=== PATIENT | male | born 1950 | race Two or more races ===

== ENCOUNTER 2020-01-30 05:49 | Day surgery (SDC) | payer MEDICARE, MEDICAID ==
--- NOTE | 2020-01-29 21:13 | Pre-Procedure Note/Attestation ---
Pre-Procedure Note/Attestation Complete Prior to Procedure Planned Procedure: right - removal of cataract and placement of intraocular lens right eye Procedure Narrative: Removal of cataract and placement of intraocular lens, right eye Indications for Procedure Pre-Operative Diagnosis: Cataract, combined, right eye Attestation I attest that I discussed the nature of the procedure; its benefits; risks and complications; and alternatives (and the risks and benefits of such alternatives), prior to the procedure, with the patient (or the patient's legal traveling sales representative). I attest that, if there was a reasonable possibility of needing a blood t ransfusion, the patient (or the patient's legal traveling sales representative) was given the [facility] standardized written summary, pursuant to the Michael Myron Blood Safety Act ([place] Health and Safety Code # 1645, as amended). I attest that I re-evaluated the patient just prior to the surgery and that there has been no change in the patient's H&P, except as documented below: Michael Jacinto MD Jan 29, 2020 21:13
[2020-01-30] VITALS (12 sets, daily range): BP systolic 128–195; BP diastolic 71–89
[~2020-01-30] VITALS: Ht 175.3 cm; Wt 86.2 kg
[~2020-01-30 05:49] MED LIST: ASPIR 8181 MG ORAL; ENALAPRIL MALEA10 MG ORAL; LYRICA75 M1 ORAL; NOVOLIN R100 UNIT/1 SUBQ; TRESIBA FL100 UNIT/1 SQ; TRULICITY0.75 MG/0. SQ; VASCEPA1 GM PO; Vit D3 PO
[2020-01-30] MEDS: Akten 3.5% 1ml Btl RIGHT EYE SCH ×3 (06:10→06:28)
[2020-01-30] MEDS: Tropicamide 1% Opth 15ml Soln RIGHT EYE SCH ×3 (06:10→06:28)
[2020-01-30] MEDS: Phenylephrine 10% Opth Soln 5ml RIGHT EYE SCH ×3 (06:10→06:28)
[2020-01-30] MEDS: Diclofenac Sod 0.1% Op Soln RIGHT EYE SCH ×3 (06:11→06:28)
[2020-01-30] MEDS: Cyclopentolate 1% Opth Sol 2ml RIGHT EYE SCH ×3 (06:11→06:28)
[2020-01-30] MEDS: Tobradex Opth Susp 2.5ml RIGHT EYE SCH ×3 (06:11→06:28)
[2020-01-30] MEDS: Vigamox Opth Soln 3ml RIGHT EYE SCH ×3 (06:11→06:28)
[2020-01-30] MEDS ORDERED: EPINEPHrine 1mg/1ml Amp ONE ×2 (07:09→07:12)
[2020-01-30] MEDS ORDERED: Lidocaine 4% Amp 5ml ONE (07:10)
[2020-01-30] MEDS ORDERED: Lidocaine 1% MPF 10mg/ml 5ml ONE (07:10)
[2020-01-30] MEDS ORDERED: prednisoLONE acetate 1% Opth Susp 1ml ONE (07:10)
[2020-01-30] MEDS ORDERED: Carbachol 0.01% Op Soln 1.5ml vial ONE (07:10)
[2020-01-30] MEDS ORDERED: timoloL maleate 0.5% Op Soln 2.5ml ONE (07:10)
[2020-01-30] MEDS ORDERED: Maxitrol Opth Oint 3.5gm ONE (07:10)
[2020-01-30] MEDS ORDERED: fentaNYL 100 mcg/2 mL IV ONE ×2 (07:10→07:30)
[2020-01-30] MEDS ORDERED: Fluorescein Strips ONE (07:10)
[2020-01-30] MEDS ORDERED: BSS 500ml btl ONE (07:11)
[2020-01-30] MEDS ORDERED: BSS 15ml BTL ONE (07:11)
[2020-01-30] MEDS ORDERED: Bupivacaine 0.75% 30ml vial INJ ONE (07:11)
[2020-01-30] MEDS ORDERED: Midazolam 2mg/2ml Inj ONE ×2 (07:11→07:30)
[2020-01-30] MEDS ORDERED: Povidone-Iodine 5% opth solution ONE (07:11)
[2020-01-30] MEDS ORDERED: Tetracaine 0.5% Opth 4ml Soln ONE (07:11)
[2020-01-30] MEDS ORDERED: Sodium Hyaluronate 10 mg/ml 0.85ml ONE (07:12)
[2020-01-30] MEDS ORDERED: NS Irrig 1000ml ONE (07:30)
[2020-01-30] MEDS ORDERED: Sterile Water Irrig 1000ml IRRIG ONE (07:30)
[2020-01-30] MEDS ORDERED: LR 1000ml ONE (07:30)
--- NOTE | 2020-01-30 07:56 | Anethesia Preoperative Eval ---
Anesthesia Pre-op PMH/ROS General Date of Evaluation: Jan 30, 2020 Time of Evaluation: 07:22 Anesthesiologist: Gloria ASA Score: ASA 3 Mallampati Score Class I : Soft palate, uvula, fauces, pillars visible Class II: Soft palate, uvula, fauces visible Class III: Soft palate, base of uvula visible Class IV: Only hard plate visible Mallampati Classification: Class I Surgeon: Ophelia Diagnosis: R eye cataract Surgical Procedure: Cataract extraction Anesthesia History: none Family History: no anesthesia problems Allergies: Coded Allergies: No Known Allergies (Unverified , 01/30/20) Medications: see eMAR Patient NPO?: Yes Past Medical History Cardiovascular: Reports: HTN - stable on meds; Denies: CAD, VA, valve dz, arrhythmia, other Pulmonary: Denies: asthma, COPD, HERON, other Gastrointestinal/Genitourinary: Reports: GERD, CRI - Elevated Cr level; Denies: ESRD, other Neurologic/Psychiatric: Reports: other - diabetic neuropathy; Denies: dementia, CVA, depression/anxiety, TIA Endocrine: Reports: DM - on insulin; Denies: hypothyroidism, steroids, other HEENT: Reports: cataract (L) - s/p x; Denies: cataract (R), glaucoma, AGUA CALIENTE (L), AGUA CALIENTE (R), other Hematology/Immune: Denies: anemia, DVT, bleeding disorder, other Musculoskeletal/Integumentary: Reports: other - R hand posttraumatic deformity; Denies: OA, RA, DJD, DDD, edema Other: other - overweight PMH Narrative: as above PSxH Narrative: R hand Sx Anesthesia Pre-op Phys. Exam Physician Exam Last Vital Signs Date Time Temp Pulse Resp B/P (MAP) Pulse Ox O2 Delivery O2 Flow Rate FiO2 01/30/20 06:25 97.0 74 18 149/81 98 Room Air Constitutional: NAD Neurologic: CN 2-12 intact Cardiovascular: RRR, no M/R/G Respiratory: CTA Gastrointestinal: S/NT/ND Airway Exam Mallampati Score: Class II MO: full Neck: stiff ROM: full Teeth: intact Dentures: no upper, no lower Anesthesia Pre-op A/P Labs Chemistry Test 01/30/20 06:18 POC Whole Blood Glucose Pending Studies Pre-op Studies: EKG - NSR Risk Assessment & Plan Assessment: ASA 3 Plan: MAC Status Change Before Surgery: Juan Kim MD Jan 30, 2020 07:56
--- NOTE | 2020-01-30 08:40 | Discharge Instructions ---
Discharge Instructions Discharge Instructions Follow Up Orders Wear shield at all times except to place eye drops Continue preoperative eye drops Followup tomorrow in Dr Jacinto's office For Congestive Heart Failure Reminder Report to your physician any weight gain of 5 pounds or more in one week. Michael Jacinto MD Jan 30, 2020 08:40
--- NOTE | 2020-01-30 08:42 | Brief Operative Note ---
Immediate Post Operative Note Operative Note Pre-op Diagnosis: Cataract, combined, right eye Procedure: Phaco PC IOL OD Use of Vision Blue for capsular staining Post-op Diagnosis: same as pre-op Surgeon: Lianna Jacinto MD MS Paying Teller: none Anesthesiologist: Dr Castro Anesthesia: local, MAC Specimen: none Complications: none Fluids: see chart Implant(s) used?: Yes - ZZCB00 22.0 Michael Jacinto MD Jan 30, 2020 08:42
[2020-01-30] MEDS ORDERED: Insulin Human Regular 100units/ml 3ml ONE (08:43)
[2020-01-30] MEDS ORDERED: Insulin Human Regular 100units/ml 3ml IV ONE (08:45)
--- NOTE | 2020-01-30 08:45 | Immediate Post-Op Evaluation ---
Immediate Post-Op Evalulation Immediate Post-Op Evalulation Procedure: R eey cataract extraction with IOL Date of Evaluation: Jan 30, 2020 Time of Evaluation: 08:44 IV Fluids: 300 Blood Products: none Estimated Blood Loss: none Urinary Output: none Blood Pressure Systolic: 151 Blood Pressure Diastolic: 84 Pulse Rate: 62 Respiratory Rate: 18 O2 Sat by Pulse Oximetry: 99 Temperature (Fahrenheit): 97.6 Pain Score (1-10): 1 Nausea: No Vomiting: No Complications none Patient Status: awake, patent, none Hydration Status: adequate Juan Castro MD Jan 30, 2020 08:45
[2020-01-30] MEDS ORDERED: Insulin Human Regular 100units/ml 3ml SUBQ SCH ×2 (09:00→09:06)
--- NOTE | 2020-01-30 12:38 | 48 Hour Post Anesthesia Eval ---
Post Anesthesia Evaluation Procedure: R eey cataract extraction with IOL Date of Evaluation: Jan 30, 2020 Time of Evaluation: 12:37 Blood Pressure Systolic: 128 0: 76 Pulse Rate: 64 Respiratory Rate: 18 Temperature (Fahrenheit): 97.6 O2 Sat by Pulse Oximetry: 98 Airway: patent Nausea: No Vomiting: No Pain Intensity: 1 Hydration Status: adequate Cardiopulmonary Status: stable Mental Status/LOC: patient returned to baseline Follow-up Care/Observations: n/a Post-Anesthesia Complications: none Follow-up care needed: ready to discharge Juan Castro MD Jan 30, 2020 12:38
--- NOTE | 2020-02-01 08:44 | Operative Note - Dictated ---
DATE OF OPERATION: 01/30/2020 SURGEON: Michael Jacinto MD. POMPOM MAKER SURGEON: None. ANESTHESIOLOGIST: Juan Castro MD. ANESTHESIA: Local/standby/monitored anesthesia care. PREOPERATIVE DIAGNOSIS: Cataract, combined, right eye. POSTOPERATIVE DIAGNOSES: Cataract, combined, right eye. PROCEDURE: 1. Phacoemulsification cataract, right eye. 2. Placement of posterior chamber intraocular lens, right eye (model, ZCB00, power 22.0). 3. Use of VisionBlue for capsular staining. SPECIMENS: None. COMPLICATIONS: None. INDICATIONS FOR SURGERY: The patient had the painless progressive decrease in visual acuity in the right eye secondary to cataract. The patient understands the risks of surgery including infection, bleeding, need for further surgery, loss of vision, no improvement in vision, loss of the eye, loss of life, glaucoma, retinal detachment, and understands these risks and elects to proceed with surgery. FINDINGS: The patient had a +3 nuclear sclerotic cataract as well as a +2 to 3 cortical cataract in addition to a +3 to +4 posterior subcapsular cataract. The red reflex was very because of the posterior subcapsular cataract and this necessitated using the VisionBlue for capsular staining in order to complete the capsulorrhexis without complications and with better visualization. OPERATIVE NOTE: After informed consent was obtained, the patient was brought to the operative room, placed in the supine position. Cardiac and respiratory monitors were attached. Time-out was performed and all criteria were met in the room and everyone in the room agreed. The right eye was then draped and prepped in a sterile manner for ocular surgery. The lid speculum was placed in the eye. A 1% lidocaine preservative-free was injected into the 9 o'clock limbus. A conjunctiva peritomy from 08:30 to 09:30 was made and dissected posteriorly. Hemostasis was maintained with bipolar cautery. A 2.8 mm limbal incision was made centered approximately 9 o'clock and dissected anteriorly. Paracentesis was made at 12 o'clock and Shugarcaine was injected into the anterior chamber followed by an air bubble. VisionBlue was then injected into the anterior chamber and anterior capsule was stained and then the VisionBlue was irrigated from the anterior chamber. The anterior chamber was then entered using a 2.8 mm keratome through the limbal incision. An anterior capsulorrhexis was then performed without complications. Hydrodissection and hydrodelineation was then performed and the lens was then phacoemulsified using divide and conquer four-quadrant technique. Residual cortical material was then aspirated. The lens was taken from its package, placed into the cartridge and the tip of the cartridge was placed through the limbal incision. The lens was injected into the capsular bag and centered nicely with a Sinskey hook. Healon was aspirated from the anterior chamber and capsular bag. One 10-0 nylon interrupted suture was then placed through the limbal incision and the knot was rotated and buried. Care was taken during the entire procedure not to touch the endothelium. The wounds were hydrated closed and all were checked and found to be watertight. The lens was visually examined and the optic and both haptics were noted to be in the capsular bag oriented in the 3 o'clock to 9 o'clock position. The wounds were checked again and found to be watertight and the conjunctiva was then closed with forceps cautery. The lid speculum and drapes were removed from the eye and drops of Timoptic 0.5%, Pred Forte drops, TobraDex drops were applied to the eye followed by Maxitrol ointment and then a shield. The patient tolerated the procedure well and left the operating room awake, alert, and in stable condition. Michael Jacinto M.D. DR: Yoselin JOB#: [id number] CC:
== END 2020-01-30 10:10 | disposition home or self-care (01) ==
LOC: SUR 05:49 → EDSEX 11:00 → MERGE 11:00
DX: H25.11 Age-related nuclear cataract, right eye (principal); H25.011 Cortical age-related cataract, right eye; H25.041 Posterior subcapsular polar age-related cataract, right eye; I12.9 Hypertensive chronic kidney disease with stage 1 through stage 4 chronic kidney disease, or unspecified chronic kidney disease; E11.22 Type 2 diabetes mellitus with diabetic chronic kidney disease; N18.9 Chronic kidney disease, unspecified; E11.40 Type 2 diabetes mellitus with diabetic neuropathy, unspecified; K21.9 Gastro-esophageal reflux disease without esophagitis; Z79.4 Long term (current) use of insulin; E66.3 Overweight; Z68.28 Body mass index [BMI] 28.0-28.9, adult
CPT/HCPCS: 66984; 82962; 94003; J0171; J1100; J1815; J2250; J2704; J3010; J7120; U0002; V2632; 94150